=== PATIENT | female | born 1975 | race Hispanic/Latino ===

== ENCOUNTER 2018-04-26 11:28 | Emergency (ER) | payer MEDICAID ==
[2018-04-26 11:39] VITALS: BMI 20.5
[2018-04-26] MEDS ORDERED: Sodium Chloride 0.9% 1,000 ML IV STA (12:20)
[2018-04-26 13:03] LABS: BASO # 0.05 K/mm3 (0.0-2.0); BASO % 0.5 % (0.0-3.0); EOS # 0.2 (0.0-0.7); EOS % 2.3 % (1.5-5.0); GRAN # 5.46 (1.4-6.5); GRAN % 52.3 % (50.0-68.0); HEMOGLOBIN 12.3 g/dL (12.0-16.0); LYMPH # 4.1 (1.2-3.4); LYMPH % 39.3 % (22.0-35.0); MEAN CORPUSCULAR HEMOGLOBIN 24.6 pg (25.0-35.0); MEAN PLATELET VOLUME 10.1 fl (7.0-11.0); MONO # 0.6 (0.1-0.6); MONO % 5.6 % (1.0-6.0); RBC 4.99 10^6/uL (3.5-6.1); RED CELL DISTRIBUTION WIDTH 16.6 % (11.5-14.5); WHITE BLOOD COUNT 10.4 10^3/ul (4.5-11.0)
[2018-04-26 13:14] LABS: ALB/GLOB RATIO 1.3 (1.1-1.8); ALBUMIN 4.4 g/dL (3.0-4.8); ALT/SGPT 18 U/L (7-56); AST/SGOT 27 U/L (14-36); BLOOD UREA NITROGEN 12 mg/dL (7-21); CALCIUM 9.4 mg/dL (8.4-10.5); GFR AFRICAN-AMERICAN > 60; GFR NON-AFRICAN AMERICAN > 60
--- NOTE | 2018-04-26 13:48 | ED PDOC ---
Arrival/HPI - General Chief Complaint: Syncope Time Seen by Provider: 04/26/18 11:44 Historian: Patient - History of Present Illness Narrative History of Present Illness (Text): 04/26/18 13:48 42 yr old patient w/ hx partial thyroidectomy 2/2 goiter, migraine, marijuana hx , anxiety, insomnia p/w syncopal episode. Pt notes at 1100 this morning she was in her drug rehab class (for marijuana) in a warm, stuff warm when she noted feeling extremely warm and then partially fainted. She notes that she felt warm , and fell out of the chair onto her left side without any head impact. She denies any neck pain, shoulder pain or any musculoskeletal pain. She notes blacking out, but still being able to hear for a couple of seconds. She notes previous occurence, which was diagnosed as vasovagal many years ago. She also notes a mild headache, similiar to previous migraines, not worst of life, not sudden in onset. She denies any FND. She also noted heavier periods then normal. Her period started yesterday and she notes using 10 pads instead of her normal 8 a day. She denies any dark or bloody stool. She notes she has seen an OBGYN for her heavy periods and was diagnosed w/ a stable polyp. She notes her current periods are not alot worse then normal, just mildly worsened. No fever, chills or night sweats. No recent trauma. She notes that she has had a " eye " of her L eye since eye surgery many years ago. She notes being able to walk normally currently and after the feinting episode. She notes that normally she drinks 7-8 cups of water a day, but did not drink any cups of water this morning. No hx of blood clots, no leg swelling, no recent trauma or surgery. She denies any SI or HI or current depression. No chest pain or sob or palpitations. No back pain or abdominal pain. No other complaints Time/Duration: Prior to Arrival Symptom Onset: Sudden Symptom Course: Resolved Activities at Onset: Other Past Medical History - Provider Review Nursing Documentation Reviewed: Yes - Travel History Have you recently traveled outside [place] w/in the past 3 mons?: No - Patient History Narrative Patient History: Depression, insomnia, Partial thyroidectomy 2/2 goiter, Migraine - Infectious Disease Hx of Infectious Diseases: None - Tetanus Immunization Tetanus Immunization: Unknown - Reproductive Menopause: No Currently : No - Cardiac Hx Cardiac Disorders: No - Pulmonary Hx Respiratory Disorders: No - Neurological Hx Neurological Disorder: Yes Hx Migraine: Yes - HEENT Hx HEENT Disorder: Yes - Renal Hx Renal Disorder: No - Endocrine/Metabolic Hx Endocrine Disorders: Yes (THYROID MASS) Other/Comment: POST SUBTOTAL THYROIDECTOMY - Hematological/Oncological Hx Blood Disorders: No - Integumentary Hx Dermatological Disorder: No - Musculoskeletal/Rheumatological Hx Musculoskeletal Disorders: No Hx Falls: No - Gastrointestinal Hx Gastrointestinal Disorders: No - Genitourinary/Gynecological Hx Genitourinary Disorders: No - Psychiatric Hx Psychophysiologic Disorder: Yes Hx Anxiety: Yes Hx Depression: Yes Hx Substance Use: Yes (MARIJUANA) - Surgical History Other/Comment: RIGHT EYE SURGERY."LAZY EYE" - Anesthesia Hx Anesthesia Reactions: No Hx Malignant Hyperthermia: No - Suicidal Assessment Feels Threatened In Home Enviroment: No Family/Social History - Physician Review Nursing Documentation Reviewed: Yes Family/Social History: No Known Family HX Smoking Status: Current Some Days Smoker Hx Alcohol Use: Yes Frequency of alcohol use: Socially Hx Substance Use: Yes (MARIJUANA) Allergies/Home Meds Allergies/Adverse Reactions: Allergies No Known Allergies Allergy (Verified 04/26/18 11:43) Home Medications: Home Meds Medication Instructions Recorded Confirmed Hydroxyzine HCl 50 mg PO HS 04/26/18 04/26/18 Ketorolac Tromethamine [Toradol] 10 mg PO Q6 PRN 04/26/18 04/26/18 Propranolol [Inderal] 10 mg PO DAILY 04/26/18 04/26/18 traMADol [Ultram] 50 mg PO Q8 PRN 04/26/18 04/26/18 Review of Systems - Review of Systems Constitutional: Normal Eyes: Normal ENT: Normal Respiratory: Normal Cardiovascular: Normal Gastrointestinal: Normal Genitourinary Female: Normal Musculoskeletal: Normal Skin: Normal Neurological: Headache (mild, similiar to previous migraines). absent: Dizziness (resolved), Focal Weakness, Gait Changes, Speech Changes, Facial Droop , Disequilibrium, Seizure Endocrine: Normal. absent: Diaphoresis, Polyuria, Polydipsia Hemo/Lymphatic: Normal Psychiatric: Normal Physical Exam Vital Signs Reviewed: Yes Vital Signs Temp Pulse Resp BP Pulse Ox 04/26/18 11:36 98.4 F 72 16 125/84 100 Temperature: Afebrile Blood Pressure: Normal Pulse: Regular Respiratory Rate: Normal Appearance: Positive for: Well-Appearing Pain Distress: None Mental Status: Positive for: Alert and Oriented X 3 Finger Stick Blood Glucose: 84 - Systems Exam Head: Present: Atraumatic, Normocephalic. No: Tenderness, Contusion, Swelling Pupils: Present: PERRL Extroacular Muscles: Present: EOMI Conjunctiva: Present: Normal Ears: Present: Normal Pharnyx: Present: Normal Nose (External): Present: Atraumatic Nose (Internal): Present: Normal Inspection Neck: Present: Normal Range of Motion. No: Meningeal Signs, MIDLINE TENDERNESS , Paraspinal Tenderness, JVD Respiratory/Chest: Present: Clear to Auscultation Cardiovascular: Present: Regular Rate and Rhythm. No: Murmurs, Normal S1, S2 Abdomen: No: Tenderness Back: Present: Normal Inspection. No: CVA Tenderness Upper Extremity: Present: Normal Inspection Lower Extremity: Present: Normal Inspection Neurological: Present: GCS=15, CN II-XII Intact, Speech Normal, Motor Func Grossly Intact, Normal Sensory Function, Normal Cerebellar Funct, Normal 2Pt Descrimination Skin: Present: Warm, Dry, Normal Color. No: Rashes Psychiatric: Present: Alert, Oriented x 3, Normal Insight, Normal Concentration. No: Anxious, Agitated, Depressed Mood, Suicidal Ideation, Homicidal Ideation Medical Decision Making ED Course and Treatment: Well appearing 42 yr old female p/w syncopal episode in a hot room, without adequate hydration previously. Also complaining of mild PALOMARES similiar to previous Migraine. Mildly worsened periods. Will seek labs. Likely vasovagal syncope. No stroke like symptoms, no FND, no current deficit, pt had transient vision loss b /l while maintaining sight. Labs: largely unremarkable. NEXUS: Neck clear, no midline spinal Tenderness, No FND, No Intox, No Distracting injury, NO ALOC [place] Syncope: No hx of CHF, HCT > 30, EKG unchanged from previous, No SOB, no HypoTN @ triage. 04/26/18 14:13 Re-eval: pt notes feeling better w/ fluids. Headache resolved. Repeat Neuro exam unremarkable. Clear for d/c home w/ followup 04/26/18 14:25 - Lab Interpretations Lab Results: 04/26/18 12:30 04/26/18 12:30 Lab Results 04/26/18 12:30: TSH 3rd Generation 1.71 04/26/18 12:30: Sodium 141, Potassium 4.4, Chloride 103, Carbon Dioxide 27, Anion Gap 14, BUN 12, Creatinine 0.7, Est GFR ( Amer) > 60, Est GFR (Non- Af Amer) > 60, Random Glucose 91, Calcium 9.4, Magnesium 2.1, Total Bilirubin 0.3, AST 27, ALT 18, Alkaline Phosphatase 68, Total Protein 7.8, Albumin 4.4, Globulin 3.4, Albumin/Globulin Ratio 1.3 04/26/18 12:30: WBC 10.4, RBC 4.99, Hgb 12.3, Hct 38.4, MCV 77.0 L, MCH 24.6 L, MCHC 32.0, RDW 16.6 H, Plt Count 326, MPV 10.1, Gran % 52.3, Lymph % (Auto) 39.3 H, [place] % (Auto) 5.6, Eos % (Auto) 2.3, Baso % (Auto) 0.5, Gran # 5.46, Lymph # (Auto) 4.1 H, [place] # (Auto) 0.6, Eos # (Auto) 0.2, Baso # (Auto) 0.05 - RAD Interpretation Radiology Orders: 04/26/18 13:41 HEAD W/O CONTRAST [CT] Stat - Medication Orders Current Medication Orders: Discontinued Medications Sodium Chloride (Sodium Chloride 0.9%) 1,000 mls @ 999 mls/hr IV .Q1H1M STA Stop: 04/26/18 13:20 Last Admin: 04/26/18 13:24 Dose: 999 mls/hr eMAR Start Stop Document 04/26/18 13:24 YAMILET (Rec: 04/26/18 13:24 [email or web address] [id number]) Intravenous Solution Start Date 04/26/18 Start Time 13:24 End Date 04/26/18 End time 14:24 Total Infusion Time 60 Metoclopramide HCl (Reglan) 10 mg IVP STAT STA Stop: 04/26/18 13:43 Last Admin: 04/26/18 14:05 Dose: 10 mg Disposition/Present on Arrival - Present on Arrival Any Indicators Present on Arrival: No History of DVT/PE: No History of Uncontrolled Diabetes: No Urinary Catheter: No History of Decub. Ulcer: No History Surgical Site Infection Following: None - Disposition Have Diagnosis and Disposition been Completed?: Yes Diagnosis: Vasovagal syncope Disposition: HOME/ ROUTINE Disposition Time: 14:27 Patient Problems: Current Active Problems Problem Status Onset Vasovagal syncope Acute Condition: GOOD Discharge Instructions (ExitCare): Syncope (ED) Additional Instructions: STEVE SMITH, thank you for letting us take care of you today. Your provider was Canelo Reynaga and you were treated for FAINT/DIZZINESS. The emergency medical care you received today was directed at your acute symptoms. If you were prescribed any medication, please fill it and take as directed. It may take several days for your symptoms to resolve. Return to the Emergency Department if your symptoms worsen, do not improve, or if you have any other problems. Please contact your doctor or call one of the physicians/clinics you have been referred to that are listed on the Patient Visit Information form that is included in your discharge packet. Bring any paperwork you were given at discharge with you along with any medications you are taking to your follow up visit. Our treatment cannot replace ongoing medical care by a primary care provider outside of the emergency department. Thank you for allowing the [facility] team to be part of your care today. If you had an X-Ray or CT scan: A Radiologist will review the ED reading if any change in treatment is needed we will contact you. If you had a blood, urine, or wound culture: It will take several days for the results, if any change in treatment is needed we will contact you. If you had an STI test: It will take 48 hours for the results. Please call after 1 week if you have not heard back. Referrals: Junaid Lang MD [Non-Staff] - Follow up with primary Mekhi Adams MD [Staff Provider] - Follow up with primary (or your primary ) Forms: [employer] (Austrian)
[2018-04-26 14:41] VITALS: BP 108/57; PULSE 56; RESP 18; TEMP 98.2; O2SAT 98
--- NOTE | 2018-04-26 22:33 | CARD ---
APPROVED REPORT Date of service: 04/26/2018 EKG Measurement Heart [id number] <Conclusion> Poor data quality, interpretation may be adversely affected Sinus bradycardia Cannot rule out Anterior infarct, age undetermined Abnormal ECG
== END 2018-04-26 14:39 | disposition home or self-care (01) ==
LOC: ED 11:28
DX: R55 Syncope and collapse (principal)
CPT/HCPCS: 80053; 83735; 84443; 85025; 93005; 96361; 96374; 99285; J2765; J7030